=== PATIENT | female | born 1955 | race Caucasian/White ===

== ENCOUNTER 2018-12-14 20:23 | Emergency (ER) | payer OTHER ==
[~2018-12-14] VITALS: Ht 167.6 cm; Wt 85.5 kg
[2018-12-14] MEDS ORDERED: CYMBALTA60 MG PO (21:07)
[2018-12-14] MEDS ORDERED: TOPAMAX100 MG PO (21:07)
[2018-12-14] MEDS ORDERED: LAMICTAL200 MG PO (21:07)
[2018-12-14] MEDS ORDERED: LIPITOR20 MG PO (21:07)
[2018-12-14] MEDS ORDERED: XANAX1 MG PO (21:08)
[2018-12-14] MEDS ORDERED: PERCOCET 10/31 COMBO PO (21:08)
[2018-12-14] MEDS ORDERED: PREDNISONE50 MG PO (21:14)
[2018-12-14 21:37] VITALS: BP 117/74
== END 2018-12-14 21:45 | disposition home or self-care (01) | DRG 607 ==
LOC: ED 20:23
DX: L50.8 Other urticaria (principal); W57.XXXA Bitten or stung by nonvenomous insect and other nonvenomous arthropods, initial encounter; F41.8 Other specified anxiety disorders; E78.00 Pure hypercholesterolemia, unspecified

== ENCOUNTER 2020-09-17 20:49 | Emergency (ER) | payer OTHER ==
[~2020-09-17 20:49] MED LIST: CYMBALTA60 MG PO; LAMICTAL200 MG PO; LIPITOR20 MG PO; PERCOCET 10/31 COMBO PO; PREDNISONE50 MG PO; TOPAMAX100 MG PO; XANAX1 MG PO
[2020-09-17 22:31] LABS: HEMATOCRIT 37.8 % (37.0-47.0); HEMOGLOBIN 12.3 g/dl (12.0-16.0); IMMATURE GRANULOCYTES 4.4 % (0.0-5.0); MEAN CELL VOLUME 97.7 fL CALC (80.0-100.0); MEAN CORPUSCULAR HGB 31.8 pG CALC (26.0-32.0); MEAN CORPUSCULAR HGB CONC 32.5 g/dL CAL (32.0-36.0); NEUT# 4.86 thou/uL (2.00-7.15); RED BLOOD COUNT 3.87 mill/uL (4.20-5.60); RED CELL DISTRI WIDTH 12.3 % (11.5-15.5)
[2020-09-17 22:47] LABS: ALBUMIN 3.2 g/dL (3.2-5.0); ALKALINE PHOSPHATASE 84 u/l (38-126); ANION GAP 11 (6-22 (CALC)); BUN 8 mg/dL (8-23); BUN/CREATININE RATIO 12 (12-20 (CALC)); CARBON DIOXIDE 26 mmol/l (22-30); CHLORIDE 103 mmol/l (95-108); CREATININE 0.7 mg/dL (0.5-1.0); GFR > 60 ML/MIN (>=60 (CALC)); GFR FOR AFR.AMER. > 60 ML/MIN (>=60 (CALC)); POTASSIUM 3.5 mmol/l (3.5-5.1); SODIUM 137 mmol/l (137-146); TOTAL PROTEIN 6.2 g/dL (6.3-8.2)
[2020-09-17 22:52] LABS: D-DIMER 0.82 mg/L (0.19-0.60)
[2020-09-17 22:53] LABS: INTERNATIONAL NORMALIZED RATIO 1.1 RATIO (0.7-1.3); SGOT/AST 35 u/l (9-36)
[2020-09-17 22:59] LABS: MYOGLOBIN 102 ng/mL (0 - 62)
[2020-09-18 00:29] VITALS: BP 120/88
== END 2020-09-18 01:00 | disposition home or self-care (01) | DRG 179 ==
LOC: ED 20:49
PROVIDERS: Family Medicine
DX: U07.1 COVID-19 (principal); F32.9 Major depressive disorder, single episode, unspecified; F41.9 Anxiety disorder, unspecified; E78.00 Pure hypercholesterolemia, unspecified